=== PATIENT | male | born 1970 ===

== ENCOUNTER 2017-11-01 16:00 | Emergency (ER) | payer BC, OTHER ==
[2017-11-01 16:00] VITALS: BMI 28.8
[2017-11-01 16:20] VITALS: TEMP 98.3
[2017-11-01] MEDS ORDERED: MethylPREDNISolone Depo 40 mg/ml Inj IM STA (16:23)
--- NOTE | 2017-11-01 16:28 | ED PDOC ---
Arrival/HPI - General Chief Complaint: Back Pain Time Seen by Provider: 11/01/17 16:16 Historian: Patient - History of Present Illness Narrative History of Present Illness (Text): 11/01/17 16:25 A 47 year old male, whose past medical history includes hypertension and diabetes (takes oral medications for both issues), presents to the emergency department complaining of lumbar back pain for 2 weeks. Patient reports pain radiates down right leg. Patient notes no other complaints at this time. Patient denies any recent injuries/traumas. Also, patient mentions he is allergic to penicillin. PMD: Dr. Sandoval Past Medical History - Provider Review Nursing Documentation Reviewed: Yes - Infectious Disease Hx of Infectious Diseases: None - Cardiac Hx Cardiac Disorders: Yes Hx Hypertension: Yes - Pulmonary Hx Respiratory Disorders: No - Neurological Hx Neurological Disorder: No - HEENT Hx HEENT Disorder: No - Renal Hx Renal Disorder: Yes Hx Kidney Stones: Yes - Endocrine/Metabolic Hx Endocrine Disorders: Yes Hx Diabetes Mellitus Type 2: Yes (NIDDM) - Hematological/Oncological Hx Blood Disorders: No - Integumentary Hx Dermatological Disorder: No - Musculoskeletal/Rheumatological Hx Musculoskeletal Disorders: Yes Hx Back Pain: Yes Hx Herniated Disk: Yes - Gastrointestinal Hx Gastrointestinal Disorders: No - Genitourinary/Gynecological Hx Genitourinary Disorders: No - Psychiatric Hx Psychophysiologic Disorder: No Hx Substance Use: No - Surgical History Hx Eye Surgery: Yes Other/Comment: REMOVAL OF KIDNEY STONES - Anesthesia Hx Anesthesia: Yes Hx Anesthesia Reactions: No Hx Malignant Hyperthermia: No - Suicidal Assessment Feels Threatened In Home Enviroment: No Family/Social History - Physician Review Nursing Documentation Reviewed: Yes Family/Social History: No Known Family HX Smoking Status: Light Smoker < 10 Cigarettes Daily Hx Alcohol Use: Yes (SOCIALLY) Hx Substance Use: No Hx Substance Use Treatment: No Allergies/Home Meds Allergies/Adverse Reactions: Allergies Penicillins Allergy (Verified 11/01/17 16:07) ANGIOEDEMA Home Medications: Home Meds Medication Instructions Recorded Confirmed Glimepiride [amaRYL] 4 mg PO DAILY 11/01/17 11/01/17 Review of Systems - Physician Review All systems were reviewed & negative as marked: Yes - Review of Systems Constitutional: absent: Other (patient denies any injuries/traumas) Musculoskeletal: Back Pain (lumbar back pain that radiates to right leg) Physical Exam Vital Signs Reviewed: Yes Vital Signs Temp Pulse Resp BP Pulse Ox 11/01/17 18:14 64 18 155/98 H 97 11/01/17 16:08 98.3 F 71 16 181/110 H 98 Temperature: Afebrile Blood Pressure: Hypertensive Pulse: Regular Respiratory Rate: Normal Appearance: Positive for: Other (patient in tears due to pain) Pain Distress: Severe - Systems Exam Head: Present: Atraumatic, Normocephalic Neck: Present: Normal Range of Motion Respiratory/Chest: Present: Clear to Auscultation, Good Air Exchange. No: Respiratory Distress, Accessory Muscle Use Cardiovascular: Present: Regular Rate and Rhythm, Normal S1, S2. No: Murmurs Abdomen: No: Tenderness, Distention, Peritoneal Signs Back: Present: Other (tenderness to right lumbar spinal region; sciatica tenderness). No: Midline Tenderness Upper Extremity: Present: Normal Inspection. No: Cyanosis, Edema Lower Extremity: Present: Other (positive straight leg raise test to right leg) Psychiatric: Present: Alert, Oriented x 3, Normal Insight, Normal Concentration Medical Decision Making ED Course and Treatment: 11/01/17 16:27 Impression: 47 year old male with lumbar back pain radiating to right leg. Physical exam shows tenderness to right lumbar spinal region and tenderness to sciatica. Plan: -- Lumbar Spinal CT -- Toradol -- DEPO-Medrol -- Morphine -- Zofran -- Reassess and disposition Progress Notes: - RAD Interpretation Radiology Orders: 11/01/17 16:23 LUMBAR SPINE W/O CONTRAST [CT] Stat - Medication Orders Current Medication Orders: Discontinued Medications Ketorolac Tromethamine (Toradol) 60 mg IM STAT STA Stop: 11/01/17 16:24 Last Admin: 11/01/17 16:38 Dose: 60 mg [facility] Pain Assessment Document 11/01/17 16:38 HI (Rec: 11/01/17 16:38 HI [id number]) Pain Reassessment Is this a pain reassessment? No IM Administration Charges Document 11/01/17 16:38 HI (Rec: 11/01/17 16:38 HI [id number]) Charges for Administration # of IM Administrations 1 Re-Assess: [facility] Pain Assessment Document 11/01/17 17:38 HI (Rec: 11/01/17 18:13 HI [id number]) Pain Reassessment Is this a pain reassessment? Yes Methylprednisolone Acetate (Depo-Medrol) 40 mg IM STAT STA Stop: 11/01/17 16:24 Last Admin: 11/01/17 16:38 Dose: 40 mg IM Administration Charges Document 11/01/17 16:38 HI (Rec: 11/01/17 16:38 HI [id number]) Injection Site MAR Injection Site Left Deltoid Charges for Administration # of IM Administrations 1 Morphine Sulfate (Morphine) 10 mg IM STAT STA Stop: 11/01/17 16:24 Last Admin: 11/01/17 16:38 Dose: 10 mg MAR Pain Assessment Document 11/01/17 16:38 HI (Rec: 11/01/17 16:38 HI [id number]) Pain Reassessment Is this a pain reassessment? No IM Administration Charges Document 11/01/17 16:38 HI (Rec: 11/01/17 16:38 HI [id number]) Charges for Administration # of IM Administrations 1 Re-Assess: MAR Pain Assessment Document 11/01/17 17:38 HI (Rec: 11/01/17 18:13 HI [id number]) Pain Reassessment Is this a pain reassessment? Yes Sleep Is patient sleeping during reassessment? No Presence of Pain Presence of Pain Yes Pain Scale Used Pain Scale Used Numeric Description Description Constant Intensity of Pain at present 8 Pain Behavior Restlessness Facial Grimacing Ondansetron HCl (Zofran Odt) 8 mg PO STAT STA Stop: 11/01/17 16:24 Last Admin: 11/01/17 16:38 Dose: 8 mg Oxycodone/Acetaminophen (Percocet 5/325 Mg Tab) 2 tab PO STAT STA Stop: 11/01/17 17:18 Last Admin: 11/01/17 17:29 Dose: 2 tab MAR Pain Assessment Document 11/01/17 17:29 HI (Rec: 11/01/17 17:29 HI [id number]) Pain Reassessment Is this a pain reassessment? Yes Sleep Is patient sleeping during reassessment? No Presence of Pain Presence of Pain Yes Location Left, Right or Bilateral Left Upper or Lower Lower Pain Location Body Site Back Description Description Constant Intensity of Pain at present 8 Radiation Location leg Pain Behavior Facial Grimacing - Scribe Statement The provider has reviewed the documentation as recorded by the Scribe Jana Maravilla Provider Scribe Attestation: All medical record entries made by the Scribe were at my direction and personally dictated by me. I have reviewed the chart and agree that the record accurately reflects my personal performance of the history, physical exam, medical decision making, and the department course for this patient. I have also personally directed, reviewed, and agree with the discharge instructions and disposition. Disposition/Present on Arrival - Present on Arrival Any Indicators Present on Arrival: No History of DVT/PE: No History of Uncontrolled Diabetes: Yes Urinary Catheter: No History of Decub. Ulcer: No History Surgical Site Infection Following: None - Disposition Have Diagnosis and Disposition been Completed?: Yes Diagnosis: Lumbar radiculopathy, acute Disposition: HOME/ ROUTINE Disposition Time: 18:37 Patient Plan: Discharge Condition: GOOD Additional Instructions: Mr Webster - I am sorry that this hurts so badly. Please follow up with Neurosurgery, Dr. New. Percocet is for really really bad pain and it is addicting. Flexeril is for spasm. Motrin 800 is for pain and inflammation. All of these meds will upset your stomach, and that is what the Zofran is for. Probably best for you to sleep on the floor with a pillow under your knees, flat on your back. Towel under your neck. Best- Dr. Ludwin Brown Prescriptions: Cyclobenzaprine [Cyclobenzaprine HCl] 10 mg PO TID #30 tab Ibuprofen [Motrin Tab] 800 mg PO TID #90 tab Ondansetron [Zofran Odt] 8 mg PO TID #30 tab.rapdis oxyCODONE/Acetaminophen [Percocet 5/325 mg Tab] 1 ea PO QID #20 tab Referrals: Cuco Sandoval MD [Primary Care Provider] - Follow up with primary Isaiah New MD [Staff Provider] - Follow up with primary Forms: [email or web address] ([place]), WORK NOTE
[2017-11-01] MEDS ORDERED: Oxycodone/Acetaminophen 5/325 mg Tab PO STA (17:17)
[2017-11-01 18:33] VITALS: BP 155/98; PULSE 64; RESP 18; O2SAT 97
--- NOTE | 2017-11-01 18:35 | CT ---
PROCEDURE: CT Lumbar Spine without contrast HISTORY: R Sided Radiculopathy, Low Back Pain COMPARISON: None. TECHNIQUE: Axial computed tomography images were obtained of the lumbar spine without the use of intravenous contrast. Coronal and sagittal reformatted images were created and reviewed. Radiation dose: Total exam DLP = 922.89 mGy-cm. This CT exam was performed using one or more of the following dose reduction techniques: Automated exposure control, adjustment of the mA and/or kV according to patient size, and/or use of iterative reconstruction technique. FINDINGS: VERTEBRAE: Normal lumbar curvature without fracture or spondylolisthesis identified. No destructive bony lesion evident. Multilevel facet joint degenerative changes are appreciated diffusely, affecting the inferior greater than superior facet joints. Benign hemangioma is suggested at the L3 vertebral body. There is limited multilevel spondylosis at the mid inferior lumbar spine. Prevertebral paraspinal soft tissues reflect a non aneurysmal but atherosclerotic abdominal aorta. DISCS/SPINAL CANAL/NEURAL FORAMINA: L1-2: Unremarkable. L2-3: A circumferential disc bulge is identified combining with limited facet joint degenerative changes to result in a mild central canal stenosis, concentrated at the lateral recesses symmetrically. No significant neural foraminal stenosis. L3-4: A disc osteophyte complex is asymmetrically greater the right than left sides but combines with facet arthropathy to result in moderate central stenosis greater the right than left. Mild right and borderline left neural foraminal stenoses are identified. L4-5: An additional disc osteophyte complex is appreciated but appears symmetric at this level combined with facet arthropathy to cause [id number] central canal stenosis. There is borderline bilateral neural foraminal stenosis. L5-S1: An additional disc osteophyte complex is identified inverting the ventral thecal sac without causing significant central canal stenosis although lateral recesses arm very mildly stenosis symmetrically. Mild bilateral neural foraminal stenosis appreciated. PARASPINAL SOFT TISSUES: As above. OTHER FINDINGS: None. IMPRESSION: Multilevel degenerative disc changes are identified combined with facet joint arthropathy resulting in variable central canal stenoses at the majority of the lumbar spine sparing L1. The findings are worst at L3-4 where moderate central canal stenosis results. No gross disc herniation is identified however MRI is more sensitive in evaluation of soft tissues and can be performed if clinically warranted.
== END 2017-11-01 19:02 | disposition home or self-care (01) ==
LOC: ED 16:00
DX: M54.16 Radiculopathy, lumbar region (principal)
CPT/HCPCS: 72131; 96372; 99283; J1030; J1885; J2270